=== PATIENT | male | born 1940 | race Caucasian/White ===

== ENCOUNTER 2017-08-15 09:39 | Day surgery (SDC) | payer MEDICARE ==
[~2017-08-15] VITALS: Ht 186.7 cm; Wt 90.2 kg
[~2017-08-15 09:39] MED LIST: AMIT10TA PO; AMIT75TA PO; ASPI-614 PO; ASPI325T17 PO; ESCI20TA PO; GABA300C10 PO; HYDR-3307 PO; NIAC100035 PO; OXYC1TAB9 PO; PREG300C PO; RANI150T8 PO; RITUXIN; SIMV40TA PO; TERA10CA3 PO; ZOLP10TA5 PO
[2017-08-15] MEDS ORDERED: MIDAZOLAM 1 MG/ML, 2ML ONE (09:44)
[2017-08-15] MEDS ORDERED: FENTANYL PF 100 MCG/2ML ONE ×2 (09:44→11:25)
[2017-08-15] MEDS ORDERED: PROPOFOL 10 MG/ML, 20ML ONE (09:45)
[2017-08-15] MEDS ORDERED: LIDOCAINE-MPF 2% ,5ML ONE (09:45)
[2017-08-15] MEDS ORDERED: LIDOCAINE 1%, 2ML ONE (09:52)
[2017-08-15 09:54] VITALS: BP 124/81
[2017-08-15] MEDS ORDERED: LIDOCAINE 1%, 2ML SQ PRN (10:00)
[2017-08-15] MEDS ORDERED: DEXAMETHASONE 4 MG/ML, 1ML ONE ×2 (10:35)
[2017-08-15] MEDS ORDERED: ONDANSETRON 2MG/ML, 2ML ONE (10:50)
[2017-08-15] MEDS ORDERED: LABETALOL 5MG/ML, 20ML IV PRN (11:00)
[2017-08-15] MEDS ORDERED: OXYcodone 5 MG/5 ML ORAL.SOL UDC PO PRN (11:00)
[2017-08-15] MEDS ORDERED: ONDANSETRON 2MG/ML, 2ML IVPush PRN (11:00)
[2017-08-15] MEDS ORDERED: ACETAMINOPHEN 325 MG TABLET PO PRN (11:00)
[2017-08-15] MEDS ORDERED: FLU VACC QS2017-18 (36MOS+) UP/PF 0.5 ML IM-VACC ONE (11:00)
[2017-08-15] MEDS ORDERED: LACTATED RINGERS 1,000 ML IV SCH (11:00)
[2017-08-15] MEDS ORDERED: PROMETHAZINE 25 MG/ML, 1ML IV PRN (11:00)
[2017-08-15] MEDS ORDERED: hydrALAzine 20 MG/ML, 1ML IV PRN (11:00)
[2017-08-15] MEDS ORDERED: OXYcodone 5 MG/5 ML ORAL.SOL UDC ONE (11:25)
[2017-08-15] MEDS: FENTANYL PF 100 MCG/2ML IV PRN ×2 (11:30→11:41)
[2017-08-15] MEDS ORDERED: HYDROmorphone 1 MG/ML, 1ML ONE (11:38)
[2017-08-15] MEDS ORDERED: OPIUM/BELLADONNA SUPP.RECT 16.2-30 MG ONE (11:44)
[2017-08-15] MEDS ORDERED: OPIUM/BELLADONNA SUPP.RECT 16.2-60 MG ONE (11:45)
[2017-08-15] MEDS: HYDROmorphone 1 MG/ML, 1ML IV PRN ×2 (11:45→11:52)
[2017-08-15] MEDS ORDERED: OPIUM/BELLADONNA SUPP.RECT 16.2-60 MG PR ONE (12:30)
[2017-08-15] MEDS ORDERED: PHENYLEPHRINE 10 MG/ML ONE (16:38)
== END 2017-08-15 17:15 ==
LOC: OUT 09:39
PROVIDERS: ATTEND Student in an Organized Health Care Education/Training Program
DX: N40.1 Benign prostatic hyperplasia with lower urinary tract symptoms (principal); I10 Essential (primary) hypertension; E78.5 Hyperlipidemia, unspecified; K21.9 Gastro-esophageal reflux disease without esophagitis; Z88.8 Allergy status to other drugs, medicaments and biological substances
CPT/HCPCS: 52630; 88305; J1100; J1170; J2250; J2370; J2405; J2704; J3010; J3490; J7120

== ENCOUNTER 2018-12-03 08:58 | Emergency (ER) | payer MEDICARE ==
[~2018-12-03] VITALS: Ht 188 cm; Wt 115.0 kg
[~2018-12-03 08:58] MED LIST changes: +AMOX1TAB64 PO; +DOXY100T PO; +GABA600T7 PO; +MORP-52 PO; +OXYC-432 PO; -OXYC1TAB9 PO; +RANI150T23 PO; -RANI150T8 PO; +TERA5CAP3 PO; +morphine
[2018-12-03] MEDS ORDERED: METOCLOPRAMIDE 5 MG/ML, 2ML IVPush ONE (09:00)
[2018-12-03] MEDS ORDERED: SODIUM CHLORIDE FLUSH 10ML SYR IVF ONE (09:00)
[2018-12-03] MEDS ORDERED: METOCLOPRAMIDE 5 MG/ML, 2ML ONE (09:08)
[2018-12-03] MEDS ORDERED: MORPHINE SULFATE 4 MG/ML, 1ML ONE ×2 (09:09→10:00)
[2018-12-03] MEDS: MORPHINE SULFATE 4 MG/ML, 1ML IVPush PRN ×2 (09:11→10:25)
--- NOTE | 2018-12-03 09:15 | NUR ---
PT MEDICATED PER DEC. RIGHTS VERIFIED PRIOR. 3 P'S ADDRESSED. AWAITING X-RAY.
--- NOTE | 2018-12-03 09:55 | NUR ---
PT CONTINUES TO BE A MASSIVE AMOUNT OF PAIN. PT REQUESTING MORE PAIN MEDICATION. EXPLAINED TO PT DUE TO THE AMOUNT OF PAIN MEDICATION HE HAS RECIEVED BOTH FROM [facility] AND EMS TODAY, THAT WE HAVE TO BE CAUTIOUS. PT TO X-RAY VIA [facility].
--- NOTE | 2018-12-03 10:23 | NUR ---
PT BACK FROM X-RAY VIA GURNEY. PT MEDICATED PER MAR FOR INCREASED PAIN.
[2018-12-03] MEDS ORDERED: HYDROmorphone 2 MG/ML, 1ML IM ONE (11:30)
[2018-12-03] MEDS ORDERED: HYDROmorphone 1 MG/ML, 1ML ONE (11:43)
[2018-12-03] MEDS ORDERED: HYDROmorphone 2 MG/ML, 1ML IVPush ONE (12:00)
[2018-12-03 12:27] VITALS: BP 152/78
== END 2018-12-03 12:50 | disposition home or self-care (01) ==
LOC: ED 12:44
DX: S42.222A 2-part displaced fracture of surgical neck of left humerus, initial encounter for closed fracture (principal); I25.10 Atherosclerotic heart disease of native coronary artery without angina pectoris; W00.0XXA Fall on same level due to ice and snow, initial encounter; Y93.89 Activity, other specified; Y92.89 Other specified places as the place of occurrence of the external cause; Y99.8 Other external cause status
CPT/HCPCS: 70450; 72125; 73030; 73060; 96374; 96375; 96376; 99284; J1170; J2765

== ENCOUNTER 2020-04-15 11:30 | Outpatient (CLI) | payer MEDICARE ==
[~2020-04-15 11:30] MED LIST changes: +HYDR-3246 PO; -HYDR-3307 PO; +RANI-467 PO; -RANI150T23 PO
[2020-04-15] MEDS ORDERED: OMNIPAQUE 350 MG/ML, 100ML BOTTLE ONE (14:54)
== END 2020-04-15 23:59 | disposition home or self-care (01) ==
LOC: CFH 11:30
PROVIDERS: ATTEND Internal Medicine Hematology & Oncology
DX: J43.2 Centrilobular emphysema (principal); M51.36 Other intervertebral disc degeneration, lumbar region; R59.9 Enlarged lymph nodes, unspecified; D72.829 Elevated white blood cell count, unspecified; C85.90 Non-Hodgkin lymphoma, unspecified, unspecified site
CPT/HCPCS: 71260; 74177; Q9967